=== PATIENT | male | born 1985 | race Caucasian/White ===

== ENCOUNTER 2022-08-21 12:29 | Emergency (ER) | payer MEDICAID ==
[~2022-08-21] VITALS: Ht 175.3 cm; Wt 93.4 kg
[2022-08-21 12:46] VITALS: BP 160/103
--- NOTE | 2022-08-21 13:10 | NUR ---
Obtained urine specimen, walked to lab. Handed to CPT. Michael
--- NOTE | 2022-08-21 13:14 | NUR ---
37 y/o male bib self for c/o burning while urinating x 1 week. Patient stattes "there is blood and discharge when he pees." Patient denies any new sexual partners. Denies fever, chills or SOB. Medical History: HTN (non-compliant) NKDA
--- NOTE | 2022-08-21 13:28 | NUR ---
Patient being taken to imaging via wheelchair.
--- NOTE | 2022-08-21 13:35 | NUR ---
37/M PRESENTS TO ED WITH C/O URINARY BURNING, HEMATURIA AND PENILE DISCHARGE X1 WEEK. DENIES FEVERS, CHILLS OR SORES AROUND PENIS, DENIES RECENT NEW SEXUAL PARTNERS.
--- NOTE | 2022-08-21 13:38 | NUR ---
Dr. Ramirez re-evaluating patient at bedside.
[2022-08-21 13:44] LABS: APPEARANCE,URINE SL CLOUDY (CLEAR); BILIRUBIN,URINE NEGATIVE (NEGATIVE); BLOOD, URINE TRACE-L (NEGATIVE); COLOR,URINE YELLOW (YELLOW); LEUKOCYTE ESTERASE ,URINE 2+ (NEGATIVE); NITRITE, URINE NEGATIVE (NEGATIVE); UGLUCOSE NEGATIVE (NEGATIVE)
[2022-08-21] MEDS ORDERED: cefTRIAXone 500 MG in LIDOCAINE MPF 1% 1 ML IM ONE (13:50)
[2022-08-21] MEDS ORDERED: DOXY-690 PO (13:54)
[2022-08-21] MEDS ORDERED: SULF-58 PO (13:54)
[2022-08-21] MEDS ORDERED: IBUP-2213 PO (13:54)
[2022-08-21] MEDS ORDERED: PENICILLIN G BENZATHINE L-A 1.2 MU/2 ML SYR IM ONE (13:55)
[2022-08-21] MEDS ORDERED: LIDOCAINE MPF 1% 5 ML ONE (14:04)
[2022-08-21] MEDS ORDERED: cefTRIAXone 500 MG VIAL ONE (14:04)
[2022-08-21 14:45] VITALS: BP 152/100
--- NOTE | 2022-08-21 14:45 | NUR ---
Patient discharged with v/s stable. Written and verbal after care instructions given. Patient alert, oriented and verbalized understanding of instructions. Ambulatory with steady gait. All questions addressed prior to discharge. ID band removed. Patient advised to follow up with PMD. Rx of Vibramycin, Ibuprofen and Bactrim given. Opportunity to ask questions provided and answered. WORK NOTE HANDED TO PATIENT.
--- NOTE | 2022-08-21 14:58 | NUR ---
The patient's care was reviewed and supervised by Swathi Prater RN.
== END 2022-08-21 14:45 | disposition home or self-care (01) ==
LOC: MED 12:29
DX: A53.9 Syphilis, unspecified (principal); N48.22 Cellulitis of corpus cavernosum and penis; R36.9 Urethral discharge, unspecified
CPT/HCPCS: 36415; 74176; 81001; 86592; 86703; 87086; 96372; 99284; J0561; J0696; J2001